=== PATIENT | female | born 1990 | race Asian ===

== ENCOUNTER 2018-05-19 20:45 | Emergency (ER) | payer OTHER ==
[~2018-05-19] VITALS: Ht 152.4 cm; Wt 54.4 kg
--- NOTE | 2018-05-19 20:59 | Emergency Room Report ---
History of Present Illness General Chief Complaint: medical clearance Source: Patient Present Illness HPI Patient is a 28-year-old female brought in by [facility] for medical clearance. The patient was noted to have prior history of and is presently 6 months . Patient denies any complaints. She reports having movement. She denies any vaginal discharge or leakage of fluid. She denies any bleeding. She denies any abdominal pain. Patient reports having had no current complaints of nausea or vomiting. Allergies: Coded Allergies: No Known Allergies (Unverified , 05/19/18) Patient History Past Medical History: see triage record Reviewed Nursing Documentation: PMH: Agreed; PSxH: Agreed Review of Systems All Other Systems: negative except mentioned in HPI Physical Exam Sp02 EP Interpretation: reviewed, normal General Appearance: normal inspection, well appearing, no apparent distress, alert, GCS 15 Head: atraumatic ENT: normal ENT inspection, hearing grossly normal, normal voice Neck: normal inspection, full range of motion, supple, no bony tend Respiratory: normal inspection, lungs clear, normal breath sounds, no respiratory distress, no retraction, no wheezing Cardiovascular #1: regular rate, rhythm, no edema Gastrointestinal: normal inspection, normal bowel sounds, non tender, soft, no guarding, no hernia Genitourinary: no CVA tenderness Musculoskeletal: normal inspection, back normal, normal range of motion Neurologic: normal inspection, alert, oriented x3, responsive, international marketing coordinator III-XII nml as tested, speech normal Psychiatric: normal inspection, judgement/insight normal, mood/affect normal Skin: normal inspection, normal color, no rash Medical Decision Making Diagnostic Impression: Primary Impression: Intrauterine ER Course Patient was noted to have evidence of . The patient denies any current symptoms. The bedside ultrasound showed intrauterine adequate heart tones. The patient is medically cleared for incarceration.The patient is advised to return if there is any change in her status or other concerns. Status: improved Disposition: D/C TO LAW ENFORCEMENT IN CUST Condition: Jairo Berry MD May 19, 2018 20:59
[2018-05-19 22:00] VITALS: BP 114/71
== END 2018-05-19 22:18 ==
LOC: EMR 21:21
DX: Z02.89 Encounter for other administrative examinations (principal); Z34.82 Encounter for supervision of other normal pregnancy, second trimester
CPT/HCPCS: 99283